=== PATIENT | male | born 2000 | race Two or more races ===

== ENCOUNTER 2024-12-01 22:28 | Emergency (ER) | payer MEDICAID ==
[~2024-12-01] VITALS: Ht 170.2 cm; Wt 69.0 kg
[~2024-12-01 22:28] MED LIST: ASCO100T12 PO; BACL-141 PO; BROM5CAP3 PO; CALC-1098 MT; CHOL-9; DOCU-422 PO; LACO200T2 PO; LEVE1000 PO; METO25TA6 PO; MULT-1146 MT; OMEP20TA23 PO; PEG15DRO14 OP; SERT25TA74 PO
[2024-12-01 22:31] VITALS: O2SAT 99
[2024-12-01 22:40] VITALS: TEMP 36.7
[2024-12-01] MEDS: LEVETIRACETAM 500MG TABLET PO ONE (23:12)
[2024-12-01 23:21] LABS: BASOPHILS % 0.3 % (0.0-2.0); EOSINOPHILS % 1.6 % (0.0-5.0); HEMATOCRIT. 44.2 % (42.0-52.0); HEMOGLOBIN. 14.7 g/dL (14.0-18.0); LYMPHOCYTES % 42.8 % (20.0-50.0); MEAN PLATELET VOLUME 9.5 fl (7.4-10.4); MONOCYTES % 6.5 % (2.0-8.0); NEUTROPHILS % 48.8 % (40.0-76.0); PLATELET 202 x1000/uL (130-400); RED BLOOD CELL COUNT 4.92 mill/uL (4.7-6.1); RED CELL DISTRIBUTION WIDTH 13.3 % (11.6-14.6)
[2024-12-01 23:39] LABS: CREATININE 1.0 mg/dL (0.6-1.3); ETHANOL BLOOD < 10 mg/dL (<10); UREA NITROGEN BLOOD 16 mg/dL (9-23)
[2024-12-02] MEDS ORDERED: LEVE1000 MT (01:17)
[2024-12-02 02:32] VITALS: BP 107/58; PULSE 72; RESP 20; O2SAT 99
== END 2024-12-02 02:54 | disposition home or self-care (01) ==
LOC: ER 22:28
DX: G40.909 Epilepsy, unspecified, not intractable, without status epilepticus (principal); Z79.899 Other long term (current) drug therapy; Z87.820 Personal history of traumatic brain injury; Z91.148 Patient's other noncompliance with medication regimen for other reason
CPT/HCPCS: 36415; 73080; 80048; 80320; 85025; 99284; G0480